=== PATIENT | female | born 1965 | race Two or more races ===

== ENCOUNTER 2023-08-13 12:18 | Emergency (ER) | payer BC ==
[~2023-08-13] VITALS: Ht 160 cm; Wt 62.4 kg
[2023-08-13] MEDS ORDERED: TRIA0.1O TOP (15:11)
[2023-08-13 15:13] VITALS: BP 137/76; PULSE 86; RESP 16; TEMP 97.1; O2SAT 98
[2023-08-13] MEDS ORDERED: methylPREDNISolone SOD SUCC 125 MG/2 ML VL IM ONE (15:15)
[2023-08-13] MEDS ORDERED: KETOROLAC TROMETH 30 MG/ML 1ML VIAL IM ONE (15:15)
== END 2023-08-13 15:43 | disposition home or self-care (01) ==
LOC: ER 12:18
DX: L30.9 Dermatitis, unspecified (principal)
CPT/HCPCS: 96372; 99284; J1885; J2930